=== PATIENT | male | born 1970 | race Caucasian/White ===

== ENCOUNTER → 2021-08-29 | Day surgery (SDC) | payer OTHER ==
[~2021-08-29] VITALS: Ht 172.7 cm; Wt 142.9 kg
[~2021-08-29] MED LIST: DICYCLOMINE 10M10 MG PO; FOLIC ACID1 M1 PO; GABAPENTIN600 MG PO; GLYBURIDE-METF1 EAC1 PO; TRULICITY3 MG/0.5 M SC; VICODIN 10/3251 EACH PO
== END | disposition home or self-care (01) ==
LOC: FAS 08-08 10:30
DX: Z12.11 Encounter for screening for malignant neoplasm of colon (principal); K57.30 Diverticulosis of large intestine without perforation or abscess without bleeding; Z80.0 Family history of malignant neoplasm of digestive organs; I10 Essential (primary) hypertension; E11.9 Type 2 diabetes mellitus without complications; M19.90 Unspecified osteoarthritis, unspecified site; Z79.4 Long term (current) use of insulin; Z79.899 Other long term (current) drug therapy; Z72.89 Other problems related to lifestyle
CPT/HCPCS: G0105; J2704; J7120